=== PATIENT | female | born 1970 | race Two or more races ===

== ENCOUNTER 2018-07-20 13:09 | Emergency (ER) | payer OTHER ==
[~2018-07-20] VITALS: Ht 162.6 cm; Wt 54.4 kg
== END 2018-07-20 16:12 | disposition home or self-care (01) ==
LOC: ER 13:09
DX: K64.4 Residual hemorrhoidal skin tags (principal)

== ENCOUNTER 2018-08-26 17:19 | Outpatient (CLI) | payer OTHER ==
[~2018-08-26 17:19] MED LIST: ADVAIR 100-501 EACH IH; ALBUTEROL0.63 MG/3 IH; SINGULAIR10 MG PO
== END 2018-08-26 17:42 | disposition home or self-care (01) ==
LOC: LAB 17:19
DX: D68.8 Other specified coagulation defects (principal)

== ENCOUNTER 2018-11-04 12:24 | Outpatient (CLI) | payer OTHER | END 2018-11-04 13:30 | disposition home or self-care (01) | LOC: LAB 12:24 | DX: D68.8 Other specified coagulation defects (principal); D68.62 Lupus anticoagulant syndrome; K64.2 Third degree hemorrhoids; D68.0 Von Willebrand disease ==

== ENCOUNTER 2023-03-28 15:23 | Outpatient (CLI) | payer OTHER | END 2023-03-28 15:29 | disposition home or self-care (01) | LOC: LAB 15:23 | PROVIDERS: ATTEND Internal Medicine Hematology & Oncology | DX: D68.8 Other specified coagulation defects (principal); D68.62 Lupus anticoagulant syndrome; D68.01 Von Willebrand disease, type 1; K64.2 Third degree hemorrhoids ==

== ENCOUNTER 2023-04-04 08:24 | Day surgery (SDC) | payer OTHER | END 2023-04-04 14:45 | disposition home or self-care (01) | LOC: CIR.AMB 08:24 | PROVIDERS: ATTEND Colon & Rectal Surgery | DX: K64.2 Third degree hemorrhoids (principal); K64.4 Residual hemorrhoidal skin tags; K92.1 Melena; Z20.822 Contact with and (suspected) exposure to COVID-19; Z88.6 Allergy status to analgesic agent ==

== ENCOUNTER 2025-03-24 02:05 | Day surgery (SDC) | payer OTHER ==
[2025-03-24] MEDS ORDERED: MIDAZOLAM HCL 2 MG/2 ML VIAL IV ONE (11:00)
[2025-03-24] MEDS ORDERED: fentaNYL CITRATE 50 MCG/ML AMPUL IV PUSH ONE (11:00)
[2025-03-24] MEDS ORDERED: DIPHENHYDRAMINE HCL 50 MG/ML VIAL 1ML IV ONE (11:00)
== END 2025-03-24 12:30 | disposition home or self-care (01) ==
LOC: AMB-ENDOS 02:05
PROVIDERS: ATTEND Colon & Rectal Surgery
DX: R19.5 Other fecal abnormalities (principal); K64.2 Third degree hemorrhoids; Z88.6 Allergy status to analgesic agent